=== PATIENT | female | born 1985 | race Caucasian/White ===

== ENCOUNTER 2017-05-26 11:08 | Observation (INO) | payer BC ==
[~2017-05-26] VITALS: Ht 180.3 cm; Wt 88.5 kg
[~2017-05-26 11:08] MED LIST: FEOSOL325 MG PO
[2017-05-26] MEDS ORDERED: SPRINTEC 28 DA1 EACH PO (12:13)
[2017-05-26] MEDS ORDERED: BACTRIM DS TAB1 EACH PO (12:15)
[2017-05-26 13:21] LABS: HEMOGLOBIN 12.3 gm/dl (12.3-15.3); RED BLOOD COUNT 3.9 M/UL (4.00-5.10); WHITE BLOOD COUNT 22.6 K/UL (4.5-11.0)
[2017-05-26 14:18] LABS: BUN/CREATININE RATIO 8 (0-10)
[2017-05-27 06:06] LABS: BUN/CREATININE RATIO 11 (0-10)
[2017-05-27] MEDS ORDERED: NORCO 5-325 TA1 EACH PO (18:18)
== END 2017-05-27 20:00 | disposition home or self-care (01) ==
LOC: M/S 11:46
PROVIDERS: ADMIT Orthopaedic Surgery
PROC: 0H9HXZZ Drainage of Right Upper Leg Skin, External Approach (ICD-10-PCS; principal; 2017-05-26 14:15)
DX: L02.415 Cutaneous abscess of right lower limb (principal); F17.210 Nicotine dependence, cigarettes, uncomplicated; Z88.5 Allergy status to narcotic agent
CPT/HCPCS: 36415; 80048; 84703; 85027; 86140; 87070; 87077; 87186; 87205; 96372; 96374; 96376; G0378; G0379; J1100; J1650; J1885; J2250; J2405; J2765; J3370; J7070; J7120